=== PATIENT | male | born 2000 | race Hispanic/Latino ===

== ENCOUNTER 2025-09-25 19:57 | Emergency (ER) | payer SELFPAY ==
[2025-09-25] MEDS ORDERED: Fluorescein Opthalmic Strip ONE ×2 (20:09→20:25)
[2025-09-25] MEDS ORDERED: Proparacaine 0.5% Opth 15 ML BOT ONE (20:12)
[2025-09-25] MEDS ORDERED: Proparacaine 0.5% Opth 15 ML BOT EA EYE SCH (20:15)
== END 2025-09-25 22:38 | disposition home or self-care (01) ==
LOC: ER/OP 19:57 → ERS 22:38
DX: S05.01XA Injury of conjunctiva and corneal abrasion without foreign body, right eye, initial encounter (principal); X10.2XXA Contact with fats and cooking oils, initial encounter
CPT/HCPCS: 99283